=== PATIENT | female | born 1970 | race Caucasian/White ===

== ENCOUNTER → 2021-03-15 10:02 | Outpatient (BNVA) | payer MEDICAID, SELFPAY | PROVIDERS: PCP Family Medicine; Visit Provider Surgery | DX: E66.01 Morbid (severe) obesity due to excess calories (principal); Z68.44 Body mass index [BMI] 60.0-69.9, adult | CPT/HCPCS: 99202 ==

== ENCOUNTER 2021-03-30 08:33 | Outpatient (REF) | payer MEDICAID, SELFPAY ==
--- NOTE | ~2021-03-30 | XR_ITS ---
EXAMINATION: XR CHEST CLINICAL INFORMATION: R06.02 - Shortness of breath COMPARISON: None TECHNIQUE: Frontal and 2 lateral views of the chest are obtained for 3 views. FINDINGS: There are some mild coarsening of the bronchiolar markings which may related to bronchitis. There is no hyperinflation and no airspace consolidation or groundglass opacity. The costophrenic sulci are clear. There is no effusion. The heart is normal in size. The hilar and mediastinal contours are normal. There are degenerative changes thoracic spine with borderline dextrocurvature. XR/XR chest 2V IMPRESSION: 1. Mild coarsening bronchiolar markings which may related to bronchitis. 2. No hyperinflation, airspace opacity, or effusion.
--- NOTE | 2021-03-30 09:18 | ECG_ITS ---
Test Reason : SOB Blood Pressure : / mmHG Vent. Rate : 083 BPM Atrial Rate : 083 BPM P-R Int : 164 ms QRS Dur : 082 ms QT Int : 352 ms P-R-T Axes : 024 148 129 degrees QTc Int : 413 ms Normal sinus rhythm Left posterior fascicular block Abnormal ECG No previous ECGs available Referred By: Shirley Cheney Electronically Signed By:Shaji Ferro
== END 2021-03-30 08:34 | disposition home or self-care (01) ==
LOC: HO.XRAY 08:33
PROVIDERS: PCP Family Medicine; Visit Provider Surgery
DX: E66.01 Morbid (severe) obesity due to excess calories (principal); K21.9 Gastro-esophageal reflux disease without esophagitis; R06.02 Shortness of breath; I44.5 Left posterior fascicular block; R94.31 Abnormal electrocardiogram [ECG] [EKG]; F41.8 Other specified anxiety disorders; Z68.44 Body mass index [BMI] 60.0-69.9, adult
CPT/HCPCS: 71046; 93005; 99211

== ENCOUNTER 2021-03-30 10:35 | Outpatient (REF) | payer MEDICAID, SELFPAY ==
[2021-04-03 14:02] LABS: H Pylori Breath Test NOT DETECTED (NOT DETECTED)
== END 2021-03-30 10:36 | disposition home or self-care (01) ==
LOC: HO.LNP 10:35
PROVIDERS: Visit Provider Surgery
DX: Z01.818 Encounter for other preprocedural examination (principal); Z11.2 Encounter for screening for other bacterial diseases
CPT/HCPCS: 83013

== ENCOUNTER 2021-04-12 08:49 | Outpatient (REF) | payer MEDICAID, SELFPAY ==
[2021-04-12 09:42] LABS: MANUAL DIFF FLAG NO
[2021-04-12 09:48] LABS: Basophils Absolute Auto 0.1 X10*3/uL (0.0-0.2); Eosinophils Absolute Auto 0.4 X10*3/uL (0.0-0.4); Eosinophils Percent Auto 3.7 % (0-4); Hematocrit 47.1 % (37-47); Hemoglobin 15.4 g/dl (12.0-16.0); Imm Gran Abs Auto 0.05 X10*3/uL (0.00-0.03); Imm Gran Pct Auto 0.5 % (0.0-0.4); Lymphocytes Absolute Auto 2.1 X10*3/uL (1.2-4.9); Lymphocytes Percent Auto 22.6 % (20-40); Mean Corpuscular HGB Conc 32.7 g/dl (31.0-35.0); Mean Corpuscular Hemoglobin 29.7 pg (27.0-33.0); Mean Corpuscular Volume 90.8 fL (80-98); Mean Platelet Volume 10.5 fL (9.4-12.3); Monocytes Absolute Auto 0.7 X10*3/uL (0.1-1.2); Monocytes Percent Auto 7.7 % (2-11); Neutrophils Absolute Auto 6.1 X10*3/uL (2.0-8.3); Neutrophils Percent Auto 64.5 % (45-73); Platelet Count 277 X10*3/uL (160-400); Red Blood Count 5.19 X10*6/uL (4.20-5.50); Red Cell Distribution Width 13.2 % (11.0-16.0); White Blood Count 9.5 X10*3/uL (4.8-10.8)
[2021-04-12 10:00] LABS: Estimated Average Glucose 120 mg/dL; Hemoglobin A1c % 5.8 %
[2021-04-12 10:18] LABS: Alanine Aminotransferase 30 U/L (0-31); Albumin Level 4.3 g/dL (3.5-5.0); Alkaline Phosphatase 93 U/L (39-117); Anion Gap 15 (12-20); Aspartate Amino Transferase 27 U/L (5-31); Bilirubin Total 0.4 mg/dL (0.0-1.0); Blood Urea Nitrogen 18 mg/dL (9-16); C Reactive Protein 5.56 mg/dL (< or = 0.50); Calcium 9.8 mg/dL (8.4-10.2); Carbon Dioxide 28 mmol/L (22-29); Chloride 103 mmol/L (96-108); Cholesterol 205 mg/dL; Estimated Glomerular Filt Rate > 60; Glucose Fasting 102 mg/dL (60-99); HDL Cholesterol 43 mg/dL; Iron 69 mcg/dL (30-160); LDL Cholesterol Calculated 144 mg/dl; Percent Iron Saturation 25 % (15-50); Potassium 4.6 mmol/L (3.3-5.1); Sodium 141 mmol/L (135-145); Total Iron Binding Capacity 279 mcg/dL (228-428); Total Protein 7.6 g/dL (6.5-8.0); Triglycerides 93 mg/dL; Unsaturated Iron Binding 210 ug/dL
[2021-04-12 10:39] LABS: Thyroid Stimulating Hormone 1.96 uIU/mL (0.32-4.0); Vitamin D 25-OH Total 31.2 ng/mL (>30)
[2021-04-12 11:01] LABS: Vitamin B12 629 pg/mL (200-900)
[2021-04-13 17:01] LABS: Calcium (PTHI) 9.7 mg/dL (8.6-10.4); PTHI 43 pg/mL (14-64)
[2021-04-16 15:26] LABS: Zinc 86 mcg/dL (60-130)
[2021-04-17 19:20] LABS: Vitamin A 36 mcg/dL (38-98)
[2021-04-18 13:37] LABS: Vitamin B1 6 nmol/L (8-30)
== END 2021-04-12 08:50 | disposition home or self-care (01) ==
LOC: HO.LAB 08:49
PROVIDERS: PCP Family Medicine; Visit Provider Surgery
DX: Z01.818 Encounter for other preprocedural examination (principal); E66.01 Morbid (severe) obesity due to excess calories; Z68.43 Body mass index [BMI] 50.0-59.9, adult; K91.2 Postsurgical malabsorption, not elsewhere classified; Z90.3 Acquired absence of stomach [part of]; Z71.3 Dietary counseling and surveillance
CPT/HCPCS: 36415; 80053; 80061; 82306; 82607; 83036; 83540; 83970; 84425; 84443; 84590; 84630; 85025; 86140; 97802

== ENCOUNTER → 2021-05-03 10:14 | Outpatient (BNVA) | payer MEDICAID, SELFPAY | PROVIDERS: PCP Family Medicine; Visit Provider Surgery | DX: E66.01 Morbid (severe) obesity due to excess calories (principal); Z68.43 Body mass index [BMI] 50.0-59.9, adult | CPT/HCPCS: 99212 ==

== ENCOUNTER → 2021-05-29 15:56 | Outpatient (BNVA) | payer MEDICAID, SELFPAY | PROVIDERS: PCP Internal Medicine Gastroenterology; Visit Provider Physician Assistant Surgical | DX: E66.01 Morbid (severe) obesity due to excess calories (principal); K21.9 Gastro-esophageal reflux disease without esophagitis; E51.9 Thiamine deficiency, unspecified; E50.9 Vitamin A deficiency, unspecified | CPT/HCPCS: 99212 ==

== ENCOUNTER → 2021-06-14 11:01 | Outpatient (BNVA) | payer MEDICAID, SELFPAY | PROVIDERS: PCP Internal Medicine Gastroenterology; Visit Provider Physician Assistant Surgical ==

== ENCOUNTER 2021-07-03 08:05 | Outpatient (REF) | payer MEDICAID, SELFPAY ==
[2021-07-08 11:41] LABS: Vitamin B1 7 nmol/L (8-30)
[2021-07-08 16:57] LABS: Vitamin A 41 mcg/dL (38-98)
== END 2021-07-03 08:06 | disposition home or self-care (01) ==
LOC: HO.US 08:05
PROVIDERS: Absent Provider Surgery; PCP Family Medicine; Visit Provider Physician Assistant Surgical
DX: Z01.818 Encounter for other preprocedural examination (principal); E50.9 Vitamin A deficiency, unspecified; E51.9 Thiamine deficiency, unspecified
CPT/HCPCS: 36415; 84425; 84590